=== PATIENT | female | born 1990 | race Caucasian/White ===

== ENCOUNTER 2021-08-08 09:06 | Emergency (ER) | payer OTHER ==
[~2021-08-08] VITALS: Ht 160 cm; Wt 80.5 kg
[2021-08-08 09:08] VITALS: BP 136/93
--- NOTE | 2021-08-08 09:25 | NUR ---
Patient ambulated to bed 7
--- NOTE | 2021-08-08 09:35 | NUR ---
Dr. Mace at bedside evaluating patient.
[2021-08-08] MEDS ORDERED: KETOROLAC 30 MG/ML VIAL IVP ONE (09:40)
[2021-08-08] MEDS ORDERED: NACL 0.9% 1,000 ML IV SCH (09:40)
--- NOTE | 2021-08-08 09:41 | NUR ---
30 y/o female bib self with c/o chest pain and epigastric pain that started today. Patient has 10/10 pain that radiates to her back. Patient also has nausea. Denies any SOB, vomiting or diarrhea. Patient states she had a fever but was unable to recall reading. Medical History: RA and Hypothyroidism NKDA
--- NOTE | 2021-08-08 09:53 | NUR ---
Ultrasound at bedside.
[2021-08-08 10:28] LABS: BASOPHILS % (AUTO) 0.4 % (0.0-2.0); EOSINOPHILS % (AUTO) 0.6 % (0.0-4.0); HEMATOCRIT 42.4 % (36-48); HEMOGLOBIN 14.3 g/dL (12.0-16.0); LYMPHOCYTES # (AUTO) 0.7 K/uL (2.5-16.5); LYMPHOCYTES % (AUTO) 9.7 % (20.5-51.1); MEAN CORPUSCULAR HEMOGLOBIN 32 pg (27-31); MEAN CORPUSCULAR HGB CONC 34 g/dL (33-37); MEAN CORPUSCULAR VOLUME 94.2 fL (80-94); MONOCYTES # (AUTO) 0.2 K/uL (0.8-1.0); MONOCYTES % (AUTO) 3.6 % (1.7-9.3); NEUTROPHILS # (AUTO) 5.8 K/uL (1.8-7.7); NEUTROPHILS % (AUTO) 85.7 % (42.2-75.2); PLATELET COUNT (AUTO) 315 K/uL (140-450); RED CELL DISTRIBUTION WIDTH 12.4 % (11.6-13.7); WHITE BLOOD COUNT (AUTO) 6.8 K/uL (4.8-10.8)
[2021-08-08 10:47] LABS: ALBUMIN 3.8 g/dL (3.4-5.0); ANION GAP 11.2 (8-16); CARBON DIOXIDE 27.5 mmol/L (21-32); CREATININE 0.8 mg/dL (0.6-1.3); POTASSIUM 3.7 mmol/L (3.5-5.1); TOTAL BILIRUBIN 2.3 mg/dL (0.0-1.0)
--- NOTE | 2021-08-08 10:56 | NUR ---
DR. ROSS RE-EVALUATING PATIENT AT BEDSIDE.
[2021-08-08] MEDS ORDERED: ONDA8TAB87 PO (11:16)
[2021-08-08] MEDS ORDERED: OMEP40EC24 PO (11:16)
[2021-08-08] MEDS ORDERED: IBUP-2213 PO (11:16)
[2021-08-08 11:35] VITALS: BP 104/61
--- NOTE | 2021-08-08 11:35 | NUR ---
Patient discharged with v/s stable. Written and verbal after care instructions given. Patient alert, oriented and verbalized understanding of instructions. Ambulatory with steady gait. All questions addressed prior to discharge. ID band removed. Patient advised to follow up with PMD. Rx of IBUPROFEN, ZOFRAN AND PRILOSEC given. Opportunity to ask questions provided and answered.
== END 2021-08-08 11:35 | disposition home or self-care (01) ==
LOC: MED 09:06
DX: R10.13 Epigastric pain (principal); R11.0 Nausea; R06.02 Shortness of breath; E07.9 Disorder of thyroid, unspecified
CPT/HCPCS: 36415; 76705; 80053; 81002; 81025; 83690; 85025; 93005; 96361; 96374; 99285; J1885; J7030; Q0092